=== PATIENT | male | born 1935 | race Caucasian/White ===

== ENCOUNTER 2021-12-27 20:58 | Emergency (ER) | payer OTHER, MEDICARE ==
[~2021-12-27] VITALS: Ht 177.8 cm; Wt 90.9 kg
[2021-12-27 22:45] VITALS: TEMP 98.8
[2021-12-27 23:56] VITALS: BP 168/34; PULSE 89
== END 2021-12-27 23:56 | disposition home or self-care (01) ==
LOC: COL.ER 20:58
DX: U07.1 COVID-19 (principal); I10 Essential (primary) hypertension; Z88.0 Allergy status to penicillin
CPT/HCPCS: Q0247

== ENCOUNTER → 2024-09-16 | Outpatient (CLI) | payer OTHER | LOC: COL.RAD 14:57 | DX: C43.71 Malignant melanoma of right lower limb, including hip (principal) ==